=== PATIENT | male | born 1945 | race Caucasian/White ===

== ENCOUNTER 2016-08-25 16:07 | Emergency (ER) | payer OTHER ==
[~2016-08-25] VITALS: Ht 167.6 cm; Wt 100.0 kg
[~2016-08-25 16:07] MED LIST: ASPIR 8181 M1 PO; ATORVASTATIN CA40 MG PO; CARVEDILOL25 MG PO; COENZYME Q10200 M2 PO; FISH OIL 1,2001 EAC4 PO; GLIPIZIDE10 MG PO; GLIPIZIDE5 MG PO; HYDROCHLOROTHIA25 MG PO; IBUPROFEN800 MG PO; LEVOTHYROXINE50 MCG PO; LOSARTAN POTASS25 MG PO; METFORMIN HCL1000 MG PO; NITROGLYCERIN0.4 MG SL; PANTOPRAZOLE SO40 MG PO; RANITIDINE HCL300 M1 PO; VITAMIN D1000 UNIT PO; VITAMIN E100 UNIT PO
[2016-08-25 19:19] VITALS: BP 140/70
== END 2016-08-25 19:22 | disposition home or self-care (01) ==
LOC: EME → EDBD 16:07 → EME 16:07
DX: S43.401A Unspecified sprain of right shoulder joint, initial encounter (principal); W01.0XXA Fall on same level from slipping, tripping and stumbling without subsequent striking against object, initial encounter; I10 Essential (primary) hypertension; E78.5 Hyperlipidemia, unspecified; E03.9 Hypothyroidism, unspecified; E11.9 Type 2 diabetes mellitus without complications; Z79.84 Long term (current) use of oral hypoglycemic drugs; Z79.82 Long term (current) use of aspirin
CPT/HCPCS: 71010; 73030; 73060; 99281; 99284; J3010

== ENCOUNTER → 2017-03-11 | Emergency (ER) | payer OTHER ==
[~2017-03-11] VITALS: Ht 154.9 cm; Wt 95.0 kg
[~2017-03-11] MED LIST changes: +ULTRACET1 TABLET PO
[2017-03-11 15:28] VITALS: BP 161/85
== END | disposition home or self-care (01) ==
LOC: EME 11:32
DX: S09.8XXA Other specified injuries of head, initial encounter (principal); S00.83XA Contusion of other part of head, initial encounter; M79.652 Pain in left thigh; W01.0XXA Fall on same level from slipping, tripping and stumbling without subsequent striking against object, initial encounter; Y93.K1 Activity, walking an animal; Y92.480 Sidewalk as the place of occurrence of the external cause; I10 Essential (primary) hypertension; E78.5 Hyperlipidemia, unspecified; E03.9 Hypothyroidism, unspecified; E11.9 Type 2 diabetes mellitus without complications; Z79.84 Long term (current) use of oral hypoglycemic drugs; Z79.82 Long term (current) use of aspirin
CPT/HCPCS: 70450; 99281; 99283; J1885

== ENCOUNTER 2017-10-30 09:47 | Emergency (ER) | payer OTHER ==
[~2017-10-30] VITALS: Ht 167.6 cm; Wt 95.6 kg
[2017-10-30] MEDS ORDERED: LIDODERM 5% P1 PATCH TD (12:16)
[2017-10-30] MEDS ORDERED: ULTRAM50 MG PO (12:16)
[2017-10-30] MEDS ORDERED: FLEXERIL10 MG PO (12:16)
[2017-10-30 12:29] VITALS: BP 138/92
== END 2017-10-30 12:35 | disposition home or self-care (01) ==
LOC: EME 09:47
DX: S76.012A Strain of muscle, fascia and tendon of left hip, initial encounter (principal); M54.32 Sciatica, left side; S83.92XA Sprain of unspecified site of left knee, initial encounter
CPT/HCPCS: 73502; 73564; 99281; 99284; J1885

== ENCOUNTER 2017-11-04 20:42 | Emergency (ER) | payer OTHER ==
[~2017-11-04] VITALS: Ht 167.6 cm; Wt 94.2 kg
[~2017-11-04 20:42] MED LIST changes: +FLEXERIL10 MG PO; +LIDODERM 5% P1 PATCH TD; +ULTRAM50 MG PO
[2017-11-04 23:57] LABS: BASOPHIL COUNT 0.1 K/uL (0-0.1); EOSINOPHIL (%) 6.9 % (0-5); EOSINOPHIL COUNT 0.6 K/uL (0-0.3); HEMATOCRIT 39.5 % (38.0-50.0); HEMOGLOBIN 14.1 G/DL (12.5-16.6); IMMATURE GRANULOCYTE (%) 0.6 % (0.0-0.7); LYMPHOCYTE (%) 37.5 % (15-42); LYMPHOCYTE COUNT 3.2 K/uL (1.0-2.8); MCHC 35.7 G/DL (30.0-36.0); MCV 89.8 FL (86-99); MONOCYTE (%) 10.3 % (3-12); MONOCYTE COUNT 0.9 K/uL (0-0.8); NEUTROPHIL (%) 43.7 % (45-76); NEUTROPHIL COUNT 3.7 K/uL (1.8-6.4); PLATELET COUNT 202 K/uL (156-360); RBC DIS.WIDTH-CV 12.5 % (11.8-14.6); RBC DIS.WIDTH-SD 41.1 % (39-53); WHITE BLOOD COUNT 8.4 K/uL (4.1-10.2)
[2017-11-05 00:05] LABS: CHLORIDE 105 mEq/L (99-109); SODIUM 141 mEq/L (136-147)
[2017-11-05 00:07] LABS: GLUCOSE 138 mg/dL (70-99)
[2017-11-05 00:11] LABS: CREATININE 0.9 mg/dL (0.6-1.3); GFR ESTIMATE (CALCULATED) > 59 mL/min/ (58.99-99999)
[2017-11-05 00:12] LABS: UREA NITROGEN (BUN) 14 mg/dL (9-23)
[2017-11-05 03:50] VITALS: BP 176/97
== END 2017-11-05 03:33 | disposition home or self-care (01) ==
LOC: EME 20:42
PROVIDERS: Emergency Medicine
DX: I10 Essential (primary) hypertension (principal); H93.19 Tinnitus, unspecified ear; E11.9 Type 2 diabetes mellitus without complications; E78.5 Hyperlipidemia, unspecified; K21.9 Gastro-esophageal reflux disease without esophagitis; Z85.828 Personal history of other malignant neoplasm of skin; Z90.49 Acquired absence of other specified parts of digestive tract; Z79.84 Long term (current) use of oral hypoglycemic drugs; Z79.82 Long term (current) use of aspirin
CPT/HCPCS: 70496; 70498; 80048; 85025; 93005